=== PATIENT | female | born 1965 | race Caucasian/White ===

== ENCOUNTER → 2016-07-19 | Outpatient (CLI) | payer OTHER ==
[~2016-07-19] VITALS: Ht 162.6 cm; Wt 87.1 kg
[~2016-07-19] MED LIST: ADVIL,NUPRIN,M200 MG PO; FLONASE16 G1 BOTH NARES; MONTELUKAST SOD10 MG PO; NEXIUM40 MG PO; PREMARIN0.625 MG PO; QVAR 80 MCG IN7.3 GM IH; SYMBICORT60 INHALAT IH; TYLENOL EXTRA500 MG PO; VENTOLIN HFA18 GM IH; WELLBUTRIN XL300 MG PO
== END | disposition home or self-care (01) ==
LOC: AMB 11:46
DX: K63.5 Polyp of colon (principal); K58.0 Irritable bowel syndrome with diarrhea; K64.8 Other hemorrhoids; K21.9 Gastro-esophageal reflux disease without esophagitis; R94.31 Abnormal electrocardiogram [ECG] [EKG]; J45.909 Unspecified asthma, uncomplicated; Z83.3 Family history of diabetes mellitus; Z82.49 Family history of ischemic heart disease and other diseases of the circulatory system; Z80.8 Family history of malignant neoplasm of other organs or systems; Z82.5 Family history of asthma and other chronic lower respiratory diseases; Z80.3 Family history of malignant neoplasm of breast; Z80.0 Family history of malignant neoplasm of digestive organs
CPT/HCPCS: 88305